=== PATIENT | male | born 1990 | race African-American/Black ===

== ENCOUNTER 2021-03-06 19:39 | Emergency (ER) | payer MEDICAID ==
[~2021-03-06] VITALS: Ht 172.7 cm; Wt 91.0 kg
[2021-03-06] MEDS ORDERED: IBUPROFEN 800MG TABLET PO ONE (21:00)
[2021-03-06] MEDS ORDERED: ACETAMINOPHEN 325MG TABLET PO ONE (21:00)
[2021-03-06 23:00] VITALS: BP 121/78
== END 2021-03-06 23:00 | disposition home or self-care (01) ==
LOC: ER 19:39
DX: S91.332A Puncture wound without foreign body, left foot, initial encounter (principal); S90.32XA Contusion of left foot, initial encounter; X95.9XXA Assault by unspecified firearm discharge, initial encounter; Y93.9 Activity, unspecified; Y92.89 Other specified places as the place of occurrence of the external cause
CPT/HCPCS: 73630; 99283